=== PATIENT | female | born 1995 | race Two or more races ===

== ENCOUNTER 2018-07-05 12:09 | Emergency (ER) | payer OTHER ==
[~2018-07-05] VITALS: Ht 154.9 cm; Wt 68.0 kg
[2018-07-05 12:09] VITALS: BP 105/68
[2018-07-05] MEDS ORDERED: KETOROLAC TROMETHAMINE INJ 30 MG/ML VIAL ONE (12:45)
[2018-07-05] MEDS ORDERED: KETOROLAC TROMETHAMINE INJ 30 MG/ML VIAL IM ONE (13:00)
== END 2018-07-05 13:16 | disposition home or self-care (01) ==
LOC: ER 12:10
DX: M62.838 Other muscle spasm (principal); M25.511 Pain in right shoulder; F41.9 Anxiety disorder, unspecified
CPT/HCPCS: 96372; 99283; A4606; J1885; Z7610

== ENCOUNTER 2020-11-14 23:50 | Emergency (ER) | payer OTHER ==
[~2020-11-14] VITALS: Ht 154.9 cm; Wt 95.3 kg
[2020-11-14 23:50] VITALS: BP 126/76
[2020-11-15] MEDS ORDERED: NEOM10DR11 EACH EAR (00:18)
== END 2020-11-15 01:14 | disposition home or self-care (01) ==
LOC: ER 23:53
DX: H60.93 Unspecified otitis externa, bilateral (principal)

== ENCOUNTER 2020-11-21 18:42 | Emergency (ER) | payer OTHER ==
[~2020-11-21] VITALS: Ht 154.9 cm; Wt 93.9 kg
[~2020-11-21 18:42] MED LIST: NEOM10DR11 EACH EAR
--- NOTE | 2020-11-21 19:10 | NUR ---
US AT BEDSIDE
--- NOTE | 2020-11-21 19:20 | NUR ---
patient to er bed 1 c/o ruq pain, states 36X weeks . patient is from [place] but does not see [employer]. patient is aaox4. denies sob. breathing evenly and unlabored on roomair. connected to the monitor.
[2020-11-21 19:23] LABS: BILIRUBIN,URINE Negative (NEGATIVE); COLOR,URINE YELLOW (YELLOW); LEUKOCYTE ESTERASE ,URINE Negative (NEGATIVE); NITRITE, URINE Negative (NEGATIVE); PH,URINE 5.5 (5.0-8.0); PROTEIN,URINE Negative (NEGATIVE); UGLUCOSE Negative (NEGATIVE)
--- NOTE | 2020-11-21 19:26 | NUR ---
BLOOD COLLECTED AND SENT TO THE LAB.
[2020-11-21 19:34] LABS: BASOPHILS # (AUTO) 0.1 /CMM (0.0-0.2); BASOPHILS % (AUTO) 0.6 % (0.0-2.0); EOSINOPHILS % (AUTO) 0.6 % (0.0-6.0); HEMATOCRIT 30 % (33-45); HEMOGLOBIN 9.5 g/dL (11.5-14.8); LYMPHOCYTES # (AUTO) 1.9 /CMM (0.8-4.8); LYMPHOCYTES % (AUTO) 19.2 % (20.0-44.0); MEAN CORPUSCULAR HGB CONC 32 g/dl (31.0-36.0); MEAN CORPUSCULAR VOLUME 77 fL (82-100); MONOCYTES # (AUTO) 0.8 /CMM (0.1-1.30); MONOCYTES % (AUTO) 8.4 % (2.0-12.0); NEUTROPHILS % (AUTO) 71.2 % (43.0-81.0); PLATELET COUNT (AUTO) 186 /CMM (150-450); RED BLOOD CELL COUNT(AUTO) 3.86 MIL/uL (4.0-5.2); WHITE BLOOD COUNT (AUTO) 9.9 K/uL (4.3-11.0)
[2020-11-21 19:35] LABS: BACTERIA,URINE Rare /HPF (None Seen); RBC,URINE 0-2 /HPF (0-2); SQUAMOUS EPITHELIAL CELL,UR 0-2 /HPF (None Seen); WBC,URINE 0-2 /HPF (0-3)
[2020-11-21 19:49] LABS: BILIRUBIN,DIRECT 0.1 mg/dL (0.0-0.2); BILIRUBIN,TOTAL 0.2 mg/dL (0.2-1.0); CREATININE 0.9 mg/dL (0.6-1.3); POTASSIUM 3.7 mmol/L (3.5-5.1); TOTAL PROTEIN, SERUM 6.4 g/dL (6.4-8.2)
--- NOTE | 2020-11-21 20:35 | NUR ---
Patient discharged to home in stable condition. Written and verbal after care instructions given. Patient verbalizes understanding of instruction.
--- NOTE | 2020-11-21 20:35 | NUR ---
IV removed. Catheter intact and site benign. Pressure and 4x4 applied to site. No bleeding noted.
[2020-11-21 20:51] VITALS: BP 133/75
== END 2020-11-21 20:52 | disposition home or self-care (01) ==
LOC: ER 18:45
DX: O99.613 Diseases of the digestive system complicating pregnancy, third trimester (principal); K80.20 Calculus of gallbladder without cholecystitis without obstruction; O26.893 Other specified pregnancy related conditions, third trimester; L29.9 Pruritus, unspecified; Z3A.35 35 weeks gestation of pregnancy
CPT/HCPCS: 36415; 76705-TC; 76805-TC; 80048-TC; 80076-TC; 81001; 83690-TC; 84702-TC; 84703-TC; 85025-TC; 85730-TC

== ENCOUNTER 2020-11-25 22:40 | Emergency (ER) | payer OTHER ==
[~2020-11-25] VITALS: Ht 154.9 cm; Wt 72.6 kg
[2020-11-25 22:52] VITALS: BP 138/86
--- NOTE | 2020-11-25 23:03 | NUR ---
PATIENT BIBS FOR C/O BILATERAL EAR PAIN. PATIENT WAS SEEN AT [facility] ER 10 DAYS AGO. GIVEN EAR DROPS, STATES DID NOT HELP. PATIENT IS A/O X 4, RR IS EVEN AND UNLABORED, NO SOB NOTED. VSS, WILL CONTINUE TO MONITOR.
[2020-11-25] MEDS ORDERED: AMOX-430 PO (23:16)
[2020-11-25] MEDS ORDERED: METH4TAB3 PO (23:16)
--- NOTE | 2020-11-25 23:41 | NUR ---
Patient discharged to home in stable condition. Written and verbal after care instructions given. Patient verbalizes understanding of instruction.
== END 2020-11-25 23:41 | disposition home or self-care (01) ==
LOC: ER 22:41
DX: O26.93 Pregnancy related conditions, unspecified, third trimester (principal); H66.93 Otitis media, unspecified, bilateral; Z3A.35 35 weeks gestation of pregnancy